=== PATIENT | female | born 1955 | race Caucasian/White ===

== ENCOUNTER 2023-10-15 07:01 | Outpatient (CLI) | payer BC, SELFPAY ==
--- NOTE | 2023-10-15 08:17 | W.ANESCHARGE ---
Anesthesia Charges Start Date/Time Anesthesia Start Date: 10/15/23 Anesthesia Start Time: 07:51 Stop Date/Time Anesthesia Stop Date: 10/15/23 Anesthesia Stop Time: 08:16
--- NOTE | 2023-10-15 10:08 | W.ANESCHARGE ---
Anesthesia Charges Start Date/Time Anesthesia Start Date: 10/15/23 Anesthesia Start Time: 07:51 Stop Date/Time Anesthesia Stop Date: 10/15/23 Anesthesia Stop Time: 08:16
== END 2023-10-15 07:02 | disposition home or self-care (01) ==
LOC: OP CLINIC 07:03
PROVIDERS: PCP Obstetrics & Gynecology; Visit Provider Surgery
DX: Z12.11 Encounter for screening for malignant neoplasm of colon (principal)
CPT/HCPCS: 00811; 00812; 45378; J2704

== ENCOUNTER 2024-07-12 08:02 | Outpatient (CLI) | payer MEDICARE, SELFPAY ==
--- NOTE | 2024-07-12 08:15 | CRLHL7_ITS ---
For Patients: As a result of the Century Cures Act, medical imaging exams and procedure reports are released immediately into your electronic medical record. You may view this report before your referring provider. If you have questions, please contact your health care provider. INDICATION : Left thyroid nodules and right thyroid nodule TECHNIQUE : Ultrasound-guided fine needle aspiration of thyroid nodules. Comparison : Ultrasound 06/14/2024 FINDINGS : PROCEDURE: After the informed consent and time-out, multiple fine needle aspirations were obtained from the thyroid nodule within the right thyroid lobe. Attempted FNA of densely calcified nodule left thyroid lobe, however, due to the calcifications specimen was limited and only a wash was sent. Therefore, FNA of subcentimeter TR 5 nodule left thyroid lobe then performed without complication. Fine needle performed. 25 gauge needles were used. Each FNA was performed similarly. Lidocaine was used for local anesthesia. The preliminary cytology was adequate for interpretation regarding the right-sided nodule and the subcentimeter left thyroid nodule. Real-time imaging was used for guidance and needle placement. Post imaging ultrasound demonstrates no immediate complication. IMPRESSION : Successful fine needle aspiration of right thyroid lobe nodule and subcentimeter left thyroid lobe nodule. Densely calcified left thyroid lobe nodule could not be adequately sampled. Dictated by Isiah García MD @ 07/12/2024 10:07:41 AM (Electronically Signed)
== END 2024-07-12 08:03 | disposition home or self-care (01) ==
PROVIDERS: PCP Surgery; Visit Provider Surgery
DX: E04.2 Nontoxic multinodular goiter (principal)
CPT/HCPCS: 10005; 88173

== ENCOUNTER 2024-08-18 06:16 | Day surgery (SDC) | payer MEDICARE, SELFPAY ==
[2024-08-18] VITALS (21 sets, daily range): BP systolic 126–157; BP diastolic 62–80; PULSE 63–98; RESP 14–18; TEMP 35.8–37.1; O2SAT 95–99; BMI 23.3
[2024-08-18] MEDS: SODIUM CHLORIDE 0.9 % (FLUSH) 10 ML SYRINGE IVF (07:27)
[2024-08-18] MEDS: 0.9 % SODIUM CHLORIDE 500 ML 500 ML 100 ML IV (07:30)
--- NOTE | 2024-08-18 07:39 | W.PM.H&PU ---
History & Physical Update History & Physical Update H&P Reviewed and patient assessed: No changes noted
--- NOTE | 2024-08-18 09:55 | SUR.OPER ---
DALTON (HOWARD) WAS UPDATED ON PROCEDURE BY PATIENCE POPE RN @ [id number]
[2024-08-18] MEDS: BUPIVACAINE 0.25% 30 ML INJECTION (10:38)
--- NOTE | 2024-08-18 11:08 | PM.GSPRC ---
Operative Note Date of procedure: 08/18/24 Pre-op diagnosis: 1. 3.6 cm right thyroid nodule, biopsy suspicious for follicular neoplasm 2. Multiple left thyroid nodules, 1 suspicious for papillary thyroid carcinoma Post-op diagnosis: Same Type of Procedure: Total thyroidectomy Indications: The patient is a 68-year-old female seen by Dr. Vila for multiple bilateral thyroid nodules. Biopsy showed that the largest nodule on the right was suspicious for follicular neoplasm. She also had multiple nodules on the left which were suspicious on ultrasound and on biopsy; 1 of which was suspicious for papillary thyroid carcinoma. After discussion, the patient agreed to proceed with total thyroidectomy. Please see Dr. Vila's documentation from preoperative decision making. Procedure Description: I arrived to the operating room after Dr. Vila had created the incision. I provided retraction while she created sub platysmal flaps to the thyroid cartilage superiorly and the sternal notch inferiorly. Once this was done, the midline raphe of the cervical fascia was incised by Dr. Vila using cautery. We began on the patient's right. I then provided retraction of the thyroid medially as Dr. Vila dissected the strap muscles free of the thyroid capsule. A large nodule was noted on the right mid to inferior thyroid. We turned our attention toward the superior pole 1st, dissecting the strap muscles off laterally. We then turned our dissection to the medial aspect of the superior lobe. Carefully the plane between the thyroid cartilage and the superior aspect of the right thyroid lobe was developed, dividing small blood vessels, until the superior pole was reached. I provided exposure and retraction of the thyroid while Dr. Vila sequentially ligate small vessels between silk ties, doubly ligating these vessels with clips prior to dividing. I then provided inferior retraction on the thyroid while doctor: Carefully dissected out the superior pole vessels, with care to stay on the thyroid gland. Again these vessels were sequentially dissected out and ligated with silk suture and clips prior to dividing. Once the superior pole was free, we turned our attention to the inferior aspect of the thyroid. As I reflected the right lobe of the thyroid medially, the middle thyroid vein was encountered. Dr. Vila dissected this carefully and ligated this with clips and ties before dividing. The inferior pole vessels were similarly dissected free. What appeared to be parathyroid tissue at the inferior aspect was carefully dissected free from the thyroid gland by Dr. Vila, and the inferior thyroid vessels were again doubly ligated and divided. I did use LigaSure to divide the distal portion of these vessels on the thyroid. I was then able to reflect the thyroid medially from the incision exposing the posterior aspect. We were able to visualize the recurrent laryngeal nerve in its usual location. This was identified both visually and also by using the Nim probe. Dr. Vila then carefully dissected small vessels posterior to the thyroid and ligated these with ties before dividing. She took great care to stay on the thyroid gland itself to avoid injury to the recurrent laryngeal nerve which was visible posterior to our plane of dissection. I continued to reflect the thyroid medially. Dr. Vila divided the thyroid at the tubercle of Zuckerkandl near the ligament of Goodwin. A miniscule amount of thyroid tissue was left here as it was immediately adjacent to the nerve. Once this was done, she was able to dissect the thyroid gland from the trachea to the midline. The wound bed was examined for hemostasis. This appeared excellent. The thyroid lobe was placed back into the right neck and attention was turned to the left. Similarly, I provided retraction of the left thyroid lobe while Dr. Vila use cautery to carefully dissect the strap muscles away from the thyroid capsule. The left lobe was seated higher in the neck than the right so we began with inferior pole vessels. Dr. Vila divided the inferior pole vessels sequentially after dissecting them free. She ligated them with silk ties and clips proximally. I then used LigaSure to divide them distally on the thyroid gland. Again tissue that appeared to be consistent with inferior parathyroid tissue was carefully dissected free from the thyroid gland using cautery by Dr. Vila. This was left in Situ. We continued our dissection inferiorly and I again retracted the thyroid medially and inferiorly. Dr. Vila divided the middle thyroid vein and we turned our attention to the superior pole. Once we had dissected as far as we could reach laterally, we again developed the plane medially. Dr. Vila carefully dissected out small vessels going to the thyroid gland superiorly and ligated them again proximally with ties and clips. I used LigaSure on the thyroid gland to divided them distally. Once the superior pole was free, I was able to reflect this medially, exposing the posterior aspect of the thyroid. Again the recurrent laryngeal nerve was identified both visually and using the Nim probe. Similarly, Dr. Vila dissected the posterior aspect of the thyroid gland, dividing small vessels with care to avoid the nerve. The tubercle of Zuckerkandl again was in its usual location near the nerve. Again a small cuff of thyroid was left behind to avoid nerve injury. The thyroid was then dissected off the trachea by Dr. Vila. I marked the thyroid gland with a single stitch at the superior aspect of the right lobe. This was then sent to pathology. We then examined the wound bed. Hemostasis appeared excellent. Anesthesia performed a Valsalva maneuver and there was no bleeding noted. I then turned over the closure of the wound to Dr. Vila. Findings: Multiple thyroid nodules. Anesthesia: GETA Surgeon: Sofia Vila MD Co-Surgeon: Concepcion Angelo MD Estimated blood loss (mL): 5 Specimen: Other Additional Specimen Information: Thyroid gland, marking stitch at right superior lobe. Condition: stable Disposition: PACU
--- NOTE | 2024-08-18 11:13 | W.ANESCHARGE ---
Anesthesia Charges Start Date/Time Anesthesia Start Date: 08/18/24 Anesthesia Start Time: 07:36 Stop Date/Time Anesthesia Stop Date: 08/18/24 Anesthesia Stop Time: 11:10
[2024-08-18] MEDS: HYDROmorphone 0.5 mg/0.5 ml inj IVP ×3 (12:15→19:54)
--- NOTE | 2024-08-18 16:51 | PM.GSPRC ---
Operative Note Date of procedure: 08/18/24 Pre-op diagnosis: 1. 3.6 cm right thyroid nodule, suspicious for follicular neoplasm 2. Multiple left thyroid nodules, suspicious for papillary thyroid carcinoma Post-op diagnosis: Same Type of Procedure: Total thyroidectomy Indications: The patient is a 68-year-old female that I saw in clinic for multiple bilateral thyroid nodules. Biopsies were obtained with the largest nodule on the right demonstrating recent growth and suspicion for follicular neoplasm. She also had multiple thyroid nodules on the left which were biopsied, at least 1 of which was suspicious for papillary thyroid carcinoma. Different treatment options were discussed with the patient agreeing to proceed with total thyroidectomy. Risks and benefits of the procedure were reviewed at length. Risks included, but were not limited to: Bleeding, infection, risk of damage to surrounding structures in particular we reviewed the risk of injury to the nerve or parathyroid glands and possible need for additional procedures. All questions and concerns were addressed with patient agreeing to proceed. Procedure Description: After discussing the risks and benefits of the procedure, the patient signed informed consent.? The operative site was marked and the patient was brought to the operating room and placed on the operating table in supine position.? Care was taken to pad the patient's pressure points.?? The patient was then intubated with the Nim monitor by anesthesia.?? I applied the electrodes to the sternum, which was connected to the console. The operative site was then prepped and draped in the usual sterile fashion.? A time-out was then performed. A 4 cm transverse incision was made approximately 2 finger breaths above the sternal notch with a 15 blade scalpel. Dissection was carried through subcutaneous tissue with electrocautery. Dr. Angelo helped to provide retraction while I created subplatysmal flaps superiorly to the thyroid cartilage and inferiorly to the sternal notch. Once this was done we identified the wrap of the cervical fascia in I incised this with cautery. We began the dissection on the right. Dr. Angelo assisted with retraction of the thyroid medially as I dissected the strap muscles off of the thyroid capsule. The right thyroid nodule was very large and created some displacement of the thyroid cartilage towards midline. We began by dissecting out the superior pole. Once the strap muscles were dissected off of the thyroid cartilage and retracted laterally we sequentially doubly ligated with silk ties and clips the superior vascular pedicle. Care was taken to stay close to the thyroid gland. One the superior pole was free we continued our dissection medially, carefully ligating and dividing any small vasculature that was identified. During this portion of dissection the middle thyroid vein was encountered, we did ligate this with ties and clips before dividing it. The inferior pole vessels were then identified, doubly ligated and dissected free. What appeared to be parathyroid tissue was seen posterior to the thyroid gland and carefully dissected free. Care was taken not to injure any feeding blood vessels to this tissue. Dr. Angelo then assisted with reflection of the thyroid medially, assisting with exposure of the posterior. We were able to visualize the recurrent laryngeal nerve and its expected location. This was confirmed by using the Nim probe. The posterior attachments of the thyroid gland were carefully dissected free, taking care not to injure the recurrent laryngeal nerve which stayed away from our plane of dissection. I divided the thyroid at the tubercle of [place] and near the ligament of Goodwin. A small amount of thyroid tissue was left there due to its close proximity to the nerve. Once this was done I was able to dissect the thyroid gland from the trachea to the midline. The wound bed was examined for hemostasis, which appeared excellent. A piece of Surgicel was left in the operative plane and attention was then turned turn to the left side. Dr. Angelo again provided retraction of the left thyroid lobe while I used cautery to carefully dissect the muscles away from the thyroid capsule. The left lobe was slightly higher in the neck, so dissection was began on the inferior pole vessels. I sequentially dissected free the inferior pole vessels, doubly ligating with silk ties and clips before transecting. Fatty tissue was identified on the posterior aspect of the thyroid gland, which appeared consistent with parathyroid tissue. This was carefully dissected free from the gland using cautery. This was left in situ. We continued our dissection medially, sequentially dividing and ligating any small vessels. The middle thyroid vein was again identified, doubly ligated and transected. Dissection was continued on the superior pole. These vessels were securely ligated with ties and clips. Dr. Angelo used the LigaSure on the thyroid gland to divide them distally. Once this dissection was complete we were able to expose the posterior aspect of the thyroid. The recurrent laryngeal nerve was identified on this side visually and with using the Nim probe. I continued dissection of the posterior aspect of the thyroid gland, dividing small vessels with care to avoid the nerve which remained outside of our operative field. The Tubercle of [place] was again identified near the nerve and a small cuff of thyroid gland was left behind to avoid nerve injury. I then dissected the thyroid gland off of the trachea. The thyroid was marked with a single stitch on the superior aspect of the right lobe and passed off for pathology. The wound bed was examined on both sides for hemostasis, which appeared excellent. The previously placed Surgicel was removed with no bleeding noted. A Valsalva maneuver was performed with again no bleeding seen. Mino was applied within the cavity. The midline raphe of the cervical fascia was closed with interrupted 3 0 Vicryl suture. The platysma muscle was reapproximated with interrupted 3-0 Vicryl suture. The incision was then closed with interrupted 3-0 Vicryl suture and running 4-0 Monocryl stitch. Steri-Strips, Telfa and Tegaderm was placed over the incision. The patient was then woken and transported to the recovery area in stable condition. ? The patient tolerated the procedure well. Findings: Multiple bilateral thyroid nodules. Anesthesia: GETA Surgeon: Sofia Vila MD Estimated blood loss (mL): 5 Additional Specimen Information: Thyroid gland, stitch placed for marking right superior lobe Condition: stable Disposition: PACU
--- NOTE | 2024-08-18 18:59 | PC.NURSE ---
End of shift summary: Pt is A&O, afebrile and VSS with exception to some post-op elevated BPs. Pt is SBA to independent in her room, she feels a little shaky from anesthesia. LS are clear and bowel sounds active, no passing gas yet. Has voided twice since surgery. PIV in left hand is now SL and C/D/I. Pt denies pain at rest but reports 6/10 pain with swallowing so she's been slow to start PO intake, only having ice chips so far. She received x1 dose of PRN Dilaudid @ 1355. Anterior neck dressing is C/D/I. Pt denies any symptoms of thyroid storm and knows what to report to the nurse (fever, sweating, confusion, delirium, tremors, irregular HR). Pt is planning on discharging home tomorrow, 08/19.
[2024-08-18] MEDS: HYDROCODONE-ACETAMIN 5-325 MG 1 TAB PO (22:00)
[2024-08-19 03:00] VITALS: BP 137/72; PULSE 81; RESP 18; TEMP 36.6; O2SAT 96
--- NOTE | 2024-08-19 05:55 | PC.NURSE ---
End of shift report [id number]: Pleasant and cooperative with cares. Patient reports pain with swallowing and pressure at incision. Dressing to neck is clean, dry and intact. Neck has scant amount of swelling around dressing, patient tolerating ice pack to incision. Tolerating fluids and soft foods, denies any nausea or vomiting. Independent with ambulation.
[2024-08-19] MEDS: LEVOTHYROXINE 75 MCG TABLET PO (06:35)
[2024-08-19 07:24] LABS: Calcium* 8.3 mg/dL (8.4-10.6)
[2024-08-19 07:40] VITALS: BP 136/71; PULSE 68; RESP 16; TEMP 36.7; O2SAT 95; O2SAT 96
[2024-08-19] MEDS: AMLODIPINE 5 MG TABLET PO (09:12)
--- NOTE | 2024-08-19 10:04 | PM.DS1 ---
DS: Providers Provider Date Seen: 08/19/24 Primary care physician: Ubaldo Chadwick MD Attending Physician on discharge: Sofia Vila MD DS: Diagnosis Discharge Diagnosis (1) S/P total thyroidectomy: Status: Acute DS: Summary Hospital Course Hospital Course: Patient was admitted to the hospital after she underwent total thyroidectomy. Patient did well postoperatively. Patient's voice was slightly scratchy but overall nearly normal. She had pain with swallowing but was able to swallow well. Her calcium was minimally decreased at 8.3. She was recommended to continue taking calcium with vitamin-D supplements twice a day postoperatively. Time Spent with Patient Time attestation: Total time spent providing and/or coordinating discharge services: Exam Narrative: Exam Narrative: Neck incision is clean and dry with no hematoma palpated at the incision. Const: Vital Signs, click to edit/add: Vital Signs - 24 hr 08/18/24 11:05 08/18/24 11:10 08/18/24 11:15 Temperature 97.3 F L Pulse Rate 78 78 78 Pulse Rate [Right Pulse Oximeter] Respiratory Rate 14 14 14 Blood Pressure 152/77 H 140/71 H 143/73 H Blood Pressure [Ri ght Arm] Pulse Oximetry 97 95 95 Oxygen Delivery Me thod Room Air Room Air Room Air 08/18/24 11:20 08/18/24 11:25 08/18/24 11:30 Temperature Pulse Rate 79 80 81 Pulse Rate [Right Pulse Oximeter] Respiratory Rate 16 16 16 Blood Pressure 149/72 H 137/71 156/79 H Blood Pressure [Ri ght Arm] Pulse Oximetry 96 97 96 Oxygen Delivery Me thod Room Air Room Air Room Air 08/18/24 11:35 08/18/24 11:40 08/18/24 12:00 Temperature 97.6 F 96.5 F L 96.5 F L Pulse Rate 80 75 80 Pulse Rate [Right Pulse Oximeter] Respiratory Rate 16 14 14 Blood Pressure 150/70 H 157/70 H 155/75 H Blood Pressure [Ri ght Arm] Pulse Oximetry 98 98 98 Oxygen Delivery Me thod Room Air Room Air 08/18/24 12:15 08/18/24 12:30 08/18/24 13:00 Temperature 96.5 F L 97.0 F L 97.0 F L Pulse Rate 85 87 93 Pulse Rate [Right Pulse Oximeter] Respiratory Rate 14 16 16 Blood Pressure 155/74 H 156/80 H 151/75 H Blood Pressure [Ri ght Arm] Pulse Oximetry 98 96 96 Oxygen Delivery Me thod Room Air 08/18/24 13:30 08/18/24 14:30 08/18/24 15:00 Temperature 97.3 F L 97.1 F L Pulse Rate 97 98 Pulse Rate [Right Pulse Oximeter] 92 Respiratory Rate 16 16 16 Blood Pressure 151/78 H 149/68 H Blood Pressure [Ri ght Arm] Pulse Oximetry 98 98 Oxygen Delivery Me thod 08/18/24 15:00 08/18/24 15:25 08/18/24 16:37 Temperature 97.1 F L 98.4 F Pulse Rate 92 92 Pulse Rate [Right Pulse Oximeter] Respiratory Rate 16 16 16 Blood Pressure 131/66 126/62 Blood Pressure [Ri ght Arm] Pulse Oximetry 97 97 96 Oxygen Delivery Me thod Room Air Room Air Room Air 08/18/24 17:35 08/18/24 19:00 08/18/24 23:00 Temperature 98 F 98.7 F Pulse Rate 95 Pulse Rate [Right Pulse Oximeter] 89 Respiratory Rate 16 18 18 Blood Pressure 145/69 H Blood Pressure [Ri ght Arm] 126/63 Pulse Oximetry 97 99 95 Oxygen Delivery Me thod Room Air Room Air Room Air 08/18/24 23:00 08/19/24 03:00 08/19/24 07:40 Temperature 97.8 F 97.8 F 98.1 F Pulse Rate Pulse Rate [Right Pulse Oximeter] 85 81 68 Respiratory Rate 18 18 16 Blood Pressure Blood Pressure [Ri ght Arm] 136/66 137/72 136/71 Pulse Oximetry 95 96 95 Oxygen Delivery Me thod Room Air Room Air Room Air DS: Data Data Completed and Pending Labs on day of discharge: Labs from last 24 hours 08/19/24 06:30 Calcium 8.3 L Discharge Plan Discharge Disposition: Home w/ Parent or Adult Discharging Surgeon: Sofia Vila Follow-Up Appointment: 2 week follow up Prescriptions: New hydrocodone-acetaminophen 5-325 mg tablet 1 tab PO Q6H PRN (Reason: pain) Qty: 10 0RF senna 8.6 mg capsule 8.6 mg PO DAILY PRN (Reason: constipation) Qty: 90 0RF levothyroxine 75 mcg capsule 75 mcg PO DAILY Qty: 90 2RF Continued alendronate 70 mg tablet 70 mg PO calcium carbonate 600 mg calcium (1,500 mg) tablet 600 mg PO BID cholecalciferol (vitamin D3) [Vitamin D3] 50 mcg (2,000 unit) tablet 50 mcg PO DAILY meclizine 12.5 mg tablet See Rx Instructions PO TID Rx Instructions: 1-2 tablets orally three times a day; naproxen .ROUTE amlodipine 5 mg tablet 5 mg PO DAILY peg 3350-electrolytes [Golytely] 236-22.74-6.74 -5.86 gram recon soln 240 ml PO ONCE Qty: 4000 0RF Rx Instructions: 4pm day prior to procedure. Drink 8oz glass every 15 minutes until 1/2 of solution is gone. 6 hours prior to your procedure time drink 8oz glass every 15 minutes until remaining solution is gone. Activity Level: No strenuous activity Activity Detail: Activity as tolerated. Avoid strenuous activity. No lifting greater than 20 lb for 2 weeks. Discharge Diet: Regular Patient Instructions: Levothyroxine (By mouth), Hydrocodone (By mouth), Senna (By mouth), Total Thyroidectomy (DC) Additional Instructions: You were prescribed a narcotic pain medication. In addition you may supplement with Tylenol and/or ibuprofen. Be sure to not exceed greater than 4 g of Tylenol in a 24 hour period. While on narcotic pain medicine please take stool softeners. A prescription of stool softeners has been sent to the pharmacy. Stop if having greater than 2 stools per day. No need for an outer dressing. Okay to shower. Do not soak in a bath or swim for 2 weeks. You should continue taking calcium supplement with vitamin-D twice a day. Follow-up with Dr. Vila in 2-3 weeks. Please call if you are experiencing severe pain, nausea, vomiting, difficulty urinating, fever or not had a bowel movement in 4 days after surgery. Follow-up: Ubaldo Chadwick MD [Primary Care Provider] - Discharge Orders: Discharge Order (Routine); Ordered 08/19/24 Ordered By: My Quiroz
[2024-08-19 10:58] VITALS: BP 139/65; PULSE 79; RESP 16; TEMP 36.8; O2SAT 96
--- NOTE | 2024-08-19 13:09 | PC.NURSE ---
Pt's pharmacy, [facility] in [place], does not carry Levothyroxine in capsules. Dr. Emmy Quiroz notified. Verbal order obtained from Dr. Quiroz for Levothyroxine tablets instead of capsules. Verbal order for Levothyroxine tablets relayed to [facility]. Pt. contacted and notified of change from capsules to tablets.
--- NOTE | 2024-08-19 13:46 | PC.NURSE ---
Pt alert and oriented. Pt had minor complaints of pain controlled with ice pack during shift. Pt up independently. Pt's IV removed and catheter intact. Pt's dressing is dry and intact. Pt tolerating regular diet well. Pt discharged home with .
== END 2024-08-19 12:16 | disposition home or self-care (01) ==
LOC: SS 13:58 → MEDSURG 13:58
PROVIDERS: PCP Surgery; Visit Provider Surgery
PROC: (CPT 60240; principal; 2024-08-18 07:30)
DX: E04.2 Nontoxic multinodular goiter (principal); C73 Malignant neoplasm of thyroid gland; I10 Essential (primary) hypertension; R06.09 Other forms of dyspnea
CPT/HCPCS: 60240; 00320; 36415; 76998; 82310; 88307; 88342; A9270; J0330; J0665; J1100; J1171; J2405; J2704; J3010; J3490; J7030

== ENCOUNTER 2024-09-15 14:30 | Outpatient (RCR) | payer MEDICARE, SELFPAY | END 2025-01-13 23:59 | disposition home or self-care (01) | PROVIDERS: PCP Surgery; Visit Provider Family Medicine | DX: M47.816 Spondylosis without myelopathy or radiculopathy, lumbar region (principal); G96.191 Perineural cyst; Z51.89 Encounter for other specified aftercare | CPT/HCPCS: 97110; 97140; 97162 ==